=== PATIENT | female | born 1980 | race Caucasian/White ===

== ENCOUNTER 2019-05-24 13:29 | Observation (INO) ==
[2019-05-24] MEDS ORDERED: Naloxone 0.4 MG/ML INJ IVP PRN (16:37)
[2019-05-24] MEDS ORDERED: Ibuprofen 400 MG TABLET PO PRN (16:37)
--- NOTE | 2019-05-24 17:04 | Internal Med History&Physical ---
Date of Encounter: 05/24/19 Time of Encounter: 16:59 Internal Medicine - H&P: HPI Chief complaint: chest pain Plans for Post Hospital Care: Home History of present illness: Ms. Nino is a 38 year old female PMH of HTN and tobacco abuse. patient t ransferred to [facility] from and outside hospital where she presented due to chest pain. 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 Reports associated light headedness, dizziness, shortness of breath. Reported that during the rest of her work shift she had intermittent discomfort but not as severe as the first episode this morning. During my evaluation patient in bed comfortable, reports the pain is 2/10 now. Chest pain is reproducible with palpation to her anterior chest and with motion of her left shoulder. Past Med Surg Social Fam HX - Past Medical History Medical history: hypertension Additional medical history: smoker Psychiatric history: no psych history - Past Surgical History Surgical History: hysterectomy - Social History Smoking Status: Current every day smoker Packs per day: 1/2 Smokeless Tobacco Status: No Alcohol use: occasionally Drug use: none - Family History Mother Hx Family Cardiac Disorders: Yes (HTN) Father Hx Family Cardiac Disorders: Yes (issues with pulmonary arterty, blockages but no stents.) Internal Medicine - H&P: Meds Lisinopril [Zestril] 20 mg PO DAILY 05/31/18 [History] Aspirin/Acetaminophen/Caffeine [Excedrin Migraine Caplet] 2 each PO PRN PRN 05/24/19 [History] Allergy/AdvReac Type Severity Reaction Status Date / Time No Known Allergies Allergy Verified 05/31/18 21:01 All Systems PM: A 10-system review of systems was performed and is negative for pertinent findings except as documented above in the HPI. - Constitutional Constitutional: no chills, no fever(s), no lethargy, no weakness - Cardiovascular Cardiovascular ROS IM: chest pain, diaphoresis, no edema, no irregular heart rhythm, no lightheadedness, no palpitations - Respiratory Respiratory: no cough, no wheezing, no excessive phlegm production - Gastrointestinal Gastrointestinal: no abdominal pain, no nausea, no vomiting - Genitourinary Genitourinary: no breast pain - Musculoskeletal Musculoskeletal ROS IM: no muscle cramps, no numbness, no stiffness - Integumentary Integumentary IM: no non-healing lesions - Neurological Neurological ROS: no headache(s) - Psychiatric Psychiatric: no anxiety - Endocrine Endocrine IM: no cold intolerance, no excessive sweating - Hematologic/Lymphatic Hematologic/Lymphatic: no lymphadenopathy - Allergic/Immunologic Allergic/Immunologic: no GI upset with certain foods - Constitutional Vitals: Temp Pulse Resp BP Pulse Ox 98.3 F 61 17 139/90 97 05/24/19 15:41 05/24/19 15:41 05/24/19 15:41 05/24/19 15:41 05/24/19 15:41 Exam: Vitals: Reviewed General: Alert and oriented x4. In no distress Cardiovascular: RRR, normal S1 & S2, no rubs, murmurs or gallops. ant chest wall pain with palpation Lungs: CTA, no wheezes or crackles. Abdomen: Obese, soft, non-tender, no rigidity. Extremities: No deformity, no edema or tenderness, no joint swelling or clubbing. Neurological: Normal cognition and motor skills. Rest of the physical exam is non contributory Internal Med - H&P Results - Diagnostic Studies Chest x-ray Status: image reviewed by me (no focal abnormalities ) - Assessment and Plan (1) Chest pain Current Visit: Yes Status: Acute Assessment and plan: possible costochondritis. pain is reproducible with palpation of the left anterior chest wall. Plan Ibuprofen 400mg/PO 1tab Q6HR PRN serial trops TTE to r/o valvular or wall motion abnormalities lipid panel urine drug screen telemetry monitoring Qualifiers: Chest pain type: intercostal pain Qualified Code(s): R07.82 - Intercostal pain (2) HTN (hypertension) Current Visit: Yes Status: Chronic Assessment and plan: will resume home medication. On lisinopril. Qualifiers: Hypertension type: unspecified Qualified Code(s): I10 - Essential (primary) hypertension (3) Tobacco abuse Current Visit: Yes Status: Chronic Assessment and plan: patient counseled about the health benefits and risks of tobacco abuse. (4) DVT prophylaxis Current Visit: Yes Status: Acute Assessment and plan: started on heparin subq. - Time Spent With Patient Total time spent is greater than 50% in coordination of care (as documented) at patient's floor/unit and/or counseling patient: Greater than 35 minutes (40)
[2019-05-24] MEDS: *HR* Heparin 5,000 UNIT/ML VIAL SQ SCH (20:38)
[2019-05-24] MEDS ORDERED: traMADol 50 MG TABLET PO PRN (21:37)
[2019-05-25 00:22] LABS: Amphetamine Screen,Urine Negative ng/mL (Cutoff=1000); Barbiturate Screen,Urine Negative ng/mL (Cutoff=200); Benzodiazepines Screen,Urine Negative ng/mL (Cutoff=200); Cannabinoid Screen,Urine Negative ng/mL (Cutoff = 50); Cocaine Screen,Urine Negative ng/mL (Cutoff= 300); Opiate Screen,Urine Negative ng/mL (Cutoff=300); Phencyclidine Screen,Urine Negative ng/mL (Cutoff=25)
[2019-05-25 02:43] LABS: Basophils # 0.1 K/mcL (0.0-0.2); Basophils % 0.8 %; Eosinophils # 0.3 K/mcL (0.0-0.6); Eosinophils % 2.8 %; Hemoglobin 13.7 g/dL (11.5-15.4); Immature Granulocytes % 0.3 % (0-4); Lymphocytes # 3.7 K/mcL (0.6-4.6); Lymphocytes % 39.4 %; Mean Corpuscular HGB Conc 34.3 g/dL (31.6-35.5); Mean Corpuscular Hemoglobin 33.3 pg (28.0-33.3); Mean Corpuscular Volume 97.1 fL (83.0-100.0); Mean Platelet Volume 11.3 fL (9.4-12.4); Monocytes # 0.8 K/mcL (0.0-1.3); Monocytes % 8.6 %; Neutrophils # 4.5 K/mcL (1.6-8.9); Platelet Count 293 K/mcL (140-400); Red Blood Count 4.12 M/mcL (3.82-4.97); Red Cell Distribution Width 11.5 % (11.5-14.5); Segmented Neutrophils % 48.1 %; White Blood Count 9.3 K/mcL (4.3-11.1)
[2019-05-25 03:00] LABS: BUN/Creatinine Ratio 24 (6-26); Blood Urea Nitrogen 18 mg/dL (6-20); Calcium 9.2 mg/dL (8.6-10.3); Carbon Dioxide 24 mEq/L (23-29); Chloride 108 mEq/L (98-107); Cholesterol 133 mg/dL (< 200); Glucose 110 mg/dL (70-105); HDL Cholesterol 33 mg/dL (40-59); LDL Cholesterol,Calculated 66 mg/dL (0-99); Magnesium 2.3 mg/dL (1.6-2.6); Osmolality,Calculated 295 (280-300); Phosphorous 5.7 mg/dL (2.7-4.5); Potassium 3.5 mEq/L (3.5-5.1); Sodium 141 mEq/L (136-145); Triglycerides 169 mg/dL (< 150); eGFR For African Americans > 60 (> 60); eGFR For Non-African Americans > 60 (> 60)
[2019-05-25] MEDS: *HR* Heparin 5,000 UNIT/ML VIAL SQ SCH (05:04)
[2019-05-25 08:05] VITALS: BP 105/64
--- NOTE | 2019-05-25 09:01 | Discharge Summary ---
- NOTES TO OUTPATIENT PROVIDER Notes to Outpatient Provider: f/u with PCP within a week. Orders not resulted at time of discharge: Pending orders 05/24/19 16:37 ECG 12 lead ECG [ECG] Routine Date of Encounter: 05/25/19 Time of Encounter: 09:00 - Discharge Diagnosis (1) Chest pain Priority: Primary Status: Acute Qualifiers: Chest pain type: intercostal pain Qualified Code(s): R07.82 - Intercostal pain (2) HTN (hypertension) Priority: Secondary Status: Chronic Qualifiers: Hypertension type: unspecified Qualified Code(s): I10 - Essential (primary) hypertension (3) Tobacco abuse Priority: Secondary Status: Chronic (4) DVT prophylaxis Priority: Primary Status: Acute Hospital course: Ms. Nino is a 38 year old female PMH of HTN and tobacco abuse. patient transferred to [facility] from and outside hospital where she presented due to chest pain. Patient reported that she started having left side 10/10 chest pain today, which she described as sharp, non-radiating, lasting <10 minutes and alleviated by rest. Reports associated light headedness, dizziness, shortness of breath. Reported that during the rest of her work shift she had intermittent discomfort but not as severe as the first episode this morning. Chest pain is reproducible with palpation to her anterior chest and with motion of her left shoulder. Serial troponin was negative, an echocardiogram was performed which was unremarkable. Patient chest pain has resolved after admission. Overall, patient's symptoms not typical for ACS, the risk and benefit of further testing including stress test were discussed with patient and family, they decided not to pursue further testing and opt to go home. Patient is discharged home today, he will follow-up with PCP within a week. Discharge discussed with: patient, family Time spent discussing smoking cessation with patient: more than 10 minutes - Time Spent with Patient Total time spent providing and/or coordinating discharge services: Time spent: Greater than 30 minutes - Discharge Medications Prescriptions: Continued Aspirin/Acetaminophen/Caffeine [Excedrin Migraine Caplet] 2 tab PO DAILY PRN PRN Reason: Migraine Headache Lisinopril [Zestril] 20 mg PO DAILY Home Medications: Lisinopril [Zestril] 20 mg PO DAILY 05/31/18 [History] Aspirin/Acetaminophen/Caffeine [Excedrin Migraine Caplet] 2 tab PO DAILY PRN 05/24/19 [History] Allergies/Adverse Reactions: Allergy/AdvReac Type Severity Reaction Status Date / Time No Known Allergies Allergy Verified 05/31/18 21:01 Date of admission: 05/24/19 15:17 Primary care physician: PCP NONE Anticipated date of discharge: 05/25/19 - Constitutional Vitals: Temp Pulse Resp BP Pulse Ox 98.1 F 49 16 105/64 93 05/25/19 08:00 05/25/19 08:00 05/25/19 08:00 05/25/19 08:00 05/25/19 08:00 General appearance: Present: A&O X 3 Exam: Vitals: Reviewed General: Alert and oriented x4. In no distress Cardiovascular: RRR, normal S1 & S2, no rubs, murmurs or gallops. ant chest wall pain with palpation Lungs: CTA, no wheezes or crackles. Abdomen: Obese, soft, non-tender, no rigidity. Extremities: No deformity, no edema or tenderness, no joint swelling or clubbing. Neurological: Normal cognition and motor skills. Rest of the physical exam is non contributory - Patient Status Disposition: Home, Self-Care Condition: Good Functional capacity at discharge: independent ambulation Overall status at discharge: patient is back to baseline - Discharge Instructions Follow Up With: NONE,PCP [Primary Care Provider] - - Diet and Activity Activity: increase activity as tolerated Diet: low fat, low cholesterol, low salt diet
--- NOTE | 2019-05-25 09:40 | Electrocardiograph Report ---
[address] [place], [place] [address] Test Date: 2019-05-24 Pat Name: Mercedes iNno Department: 113 Room: 3B Gender: F Shank Stitcher: : 1980 Requested By: Hany Brody Order Number: [id number] Reading MD: Taj Baker Measurements Intervals Williams Rate: 52 P: 32 CT: 189 QRS: -3 QRSD: 92 T: 37 QT: 389 QTc: 369 Interpretive Statements SINUS BRADYCARDIA Electronically Signed On 05-25-2019 9:39:22 EDT by Taj Baker
== END 2019-05-25 10:22 | disposition home or self-care (01) ==
LOC: 3BNU
PROVIDERS: ADMIT Internal Medicine Nephrology; ATTEND Internal Medicine Nephrology